=== PATIENT | male | born 1925 | race Caucasian/White ===

== ENCOUNTER 2017-02-19 10:47 | Emergency (ER) | payer MEDICARE, BC ==
[2017-02-19 10:51] VITALS: BP 109/68
[2017-02-19] MEDS ORDERED: Tetracaine HCl/PF 0.5% 4 ML Bottle EYERT ONE (11:09)
[2017-02-19] MEDS ORDERED: Fluorescein 1 MG Ophth Strip EYERT ONE (11:12)
--- NOTE | 2017-02-19 11:29 | EDM.PDOC ---
ED HPI GENERAL MEDICAL PROBLEM - General Chief Complaint: ENT Problem Stated Complaint: FB R)EYE Time Seen by Provider: 02/19/17 11:04 Source of Information: Reports: Patient - History of Present Illness INITIAL COMMENTS - FREE TEXT/NARRATIVE: Patient is an 89 year old male who presents to the ER with complaints of something in his eye since Monday evening. He reports he was sitting in his recliner when he suddenly felt something in his eye. He reports he has been using his eye drops, which typically help when he feels something in his eye. He reports he has been trying not to rub his eye but it does itch. Denies visual disturbance. Reports eye pain, eye itchiness. Reports he has had bilateral lens replacements. Onset Date: 02/17/17 Duration: Constant Location: Reports: Other (right eye) Improves with: Reports: None Treatments CASE WORKER: Reports: Other (see below) (eye drops) - Related Data Allergies Allergy/AdvReac Type Severity Reaction Status Date / Time Antihistamines - Alkylamine Allergy Hallucinati Verified 02/19/17 10:53 ons Antihistamines - Ethanolamine Allergy Hallucinati Verified 02/19/17 10:53 ons Antihistamines - Allergy Hallucinati Verified 02/19/17 10:53 Ethylenediamine ons Antihistamines - Piperazine Allergy Hallucinati Verified 02/19/17 10:53 ons Antihistamines - Piperidine Allergy Hallucinati Verified 02/19/17 10:53 ons Sulfa (Sulfonamide Allergy Cannot Verified 02/19/17 10:53 Antibiotics) Remember Home Meds: Home Meds Cyanocobalamin (Vitamin B-12) [Cyanocobalamin Injection] 1,000 mcg IM Q30D 09/12 [History] Furosemide 20 mg PO DAILY 09/12/13 [History] Glucosamine HCl/Chondr Sweet A Na [Glucosamine-Chondroitin Tab] 1 each PO BID 09/12 [History] Levothyroxine [Synthroid] 50 mcg PO ACBRK 09/12/13 [History] Multivitamin with Minerals [Multiple Vitamin] 1 tab PO DAILY 09/12/13 [History] Metoprolol Succinate 12.5 mg PO DAILY 02/19/17 [History] Past Medical History Cardiovascular History: Reports: Afib Other Neuro History: brain bleed Endocrine/Metabolic History: Reports: Hypothyroidism - Past Surgical History HEENT Surgical History: Reports: Other (See Below) Other HEENT Surgeries/Procedures: NEW LENS PLACED ON BOTH EYES Other Cardiovascular Surgeries/Procedures: abdominal aneurysm repair Other Male Surgeries/Procedures: kidney removal Musculoskeletal Surgical History: Reports: Hip Replacement, Shoulder Replacement Social & Family History - Family History Family Medical History: Noncontributory - Tobacco Use Smoking Status *Q: Never Smoker Second Hand Smoke Exposure: No - Caffeine Use Caffeine Use: Reports: None - Alcohol Use Days Per Week of Alcohol Use: 0 - Recreational Drug Use Recreational Drug Use: No ED ROS ENT - Review of Systems Review Of Systems: ROS reveals no pertinent complaints other than HPI. Constitutional: Reports: No Symptoms HEENT: Reports: Eye Pain (itching). Denies: Eye Discharge, Vision Change Respiratory: Reports: No Symptoms Cardiovascular: Reports: No Symptoms ED EXAM, ENT - Physical Exam Exam: See Below Exam Limited By: No Limitations General Appearance: Alert, WD/WN, No Apparent Distress Eye Exam: Right Eye: Foreign Body (small white sudhir), Other (visual acuity intact), Bilateral Eye: EOMI, Normal Fundi, Normal Inspection, PERRL, Vision Changes Ears: Normal External Exam, Normal Canal, Hearing Grossly Normal, Normal TMs Nose: Normal Inspection, Normal Mucousa, No Blood Head: Atraumatic, Normocephalic Respiratory/Chest: No Respiratory Distress, Lungs Clear, Normal Breath Sounds, No Accessory Muscle Use, Chest Non-Tender Cardiovascular: Normal Peripheral Pulses, Regular Rate, Rhythm, No Edema, No Gallop, No JVD, No Murmur, No Rub Course - Vital Signs Last Recorded V/S: Last Vital Signs Temp 97.5 F 02/19/17 10:48 Pulse 75 02/19/17 10:48 Resp 20 02/19/17 10:48 BP 109/68 02/19/17 10:48 Pulse Ox 97 02/19/17 10:48 - Orders/Labs/Meds Meds: Medications Discontinued Medications Generic Name Dose Route Start Last Admin Trade Name Freq PRN Reason Stop Dose Admin Ciprofloxacin 1 ml 02/19/17 14:00 Ciloxan 0.3% Ophth Soln EYERT 02/26/17 14:01 TID YANETH Ciprofloxacin 1 ml 02/19/17 11:31 02/19/17 11:34 Ciloxan 0.3% Ophth Soln EYERT 02/26/17 11:32 3 drop TID YANETH Administration Fluorescein Sodium 1 mg 02/19/17 11:12 02/19/17 11:18 Ful-Jhonny EYERT 02/19/17 11:13 1 mg ONETIME ONE Administration Tetracaine HCl 1 ml 02/19/17 11:09 02/19/17 11:11 Tetracaine 0.5% Steri-Unit Ginny EYERT 02/19/17 11:10 1 drop ASDIRECTED ONE Administration - Re-Assessments/Exams Free Text/Narrative Re-Assessment/Exam: Tetracaine drop administered to right eye. Ful-jhonny strip to right eye. Visualized under blue pen light. Small white foreign body removed from right lower eye. Small corneal abrasion noted to right lower eye at ~4 o'clock area. Patient tolerated well without complication. Reports improvement in eye pain and itchiness. Reports it feels like foreign body has been removed. Departure - Departure Time of Disposition: 11:26 Disposition: Home, Self-Care 01 Condition: Good Clinical Impression: Corneal abrasion, right Qualifiers: Encounter type: initial encounter Qualified Code(s): S05.01XA - Injury of conjunctiva and corneal abrasion without foreign body, right eye, initial encounter Foreign body in eyeball, right Qualifiers: Encounter type: initial encounter Qualified Code(s): S05.51XA - Penetrating wound with foreign body of right eyeball, initial encounter - Discharge Information Instructions: Eye Foreign Body, [id number], Corneal Abrasion, [id number] Referrals: Slim Hoffman MD [Primary Care Provider] - Forms: ED Department Discharge Additional Instructions: Eye drops- three drops three times a day for the next 7 days to prevent infection. Discussed that eye may be irritated for next couple days. Follow up with primary care provider as needed.
[2017-02-19] MEDS ORDERED: Ciprofloxacin 0.3% Ophth Soln 2.5 ML Bottle EYERT SCH ×2 (11:31→14:00)
== END 2017-02-19 11:45 | disposition home or self-care (01) ==
LOC: CC.ED 10:47
DX: T15.81XA Foreign body in other and multiple parts of external eye, right eye, initial encounter (principal); S05.01XA Injury of conjunctiva and corneal abrasion without foreign body, right eye, initial encounter; E03.9 Hypothyroidism, unspecified; Z79.899 Other long term (current) drug therapy; Z88.2 Allergy status to sulfonamides; Z88.8 Allergy status to other drugs, medicaments and biological substances
CPT/HCPCS: 65205; 65220; 99283; A9270